=== PATIENT | female | born 1970 | race Caucasian/White ===

== ENCOUNTER 2020-03-05 09:49 | Day surgery (SDC) | payer BC ==
[2020-03-05] MEDS ORDERED: Lactated Ringers 1,000 ML IV SCH (10:00)
[2020-03-05] MEDS ORDERED: Lactated Ringers 1,000 ML IV ONE ×2 (10:18→14:03)
[2020-03-05] MEDS ORDERED: DIPRIVAN 200 MG/20 ML IV ONE ×2 (14:04→14:39)
[2020-03-05] MEDS ORDERED: Xylocaine-Mpf 2% 5 Ml Vial ONE (14:04)
[2020-03-05] MEDS ORDERED: Compazine 10 MG/2 ML ONE (15:05)
[2020-03-05 15:42] VITALS: O2SAT 98
[2020-03-05 16:04] VITALS: BP 120/78; PULSE 72
--- NOTE | 2020-03-06 08:34 | HP ---
HISTORY: This is a patient with reflux, bloating and change in her bowel functions who presents for EGD and colonoscopy. She also had gallbladder disease with a HIDA scan of 13%. PAST MEDICAL/SURGICAL HISTORY: Includes pleurisy, hypertension, D&C, cervical biopsy. MEDICATIONS: Lisinopril, Xyzal, Claritin, Lysine. ALLERGIES: ALLERGIES REVIEWED. SOCIAL HISTORY: No tobacco use. FAMILY HISTORY: Coronary artery disease, gallbladder disease, lung cancer. PHYSICAL EXAMINATION: GENERAL: No acute distress. CVS: Regular rate and rhythm. PULMONARY: Nonlabored respirations. ABDOMEN: Soft, nontender, nondistended. EXTREMITIES: Normal. DIAGNOSIS: Change in bowel function, bloating, gastroesophageal reflux disease. PLAN: EGD and colonoscopy.
--- NOTE | 2020-03-06 08:57 | OP ---
PROCEDURE DATE/TIME: 03/05/2020 1412 PREOPERATIVE DIAGNOSIS: Bloating, reflux, change in bowel function. POSTOPERATIVE DIAGNOSES: 1) Reflux disease. 2) Questionable early Pickard's disease. 3) Mild gastritis. 4) Small hiatal hernia. 5) Colon polyps. 6) Mild hemorrhoidal disease. PROCEDURES: 1) EGD with biopsies. 2) Colonoscopy with hot forceps polypectomy. PROCEDURE PERFORMED BY: Viki John M.D. ANESTHESIA: MAC. ESTIMATED BLOOD LOSS: Minimal. COMPLICATIONS: None. SPECIMENS: 1) Duodenal biopsies; rule out celiac disease. 2) Antral biopsies; rule out Helicobacter pylori disease. 3) Distal esophagus; rule out Pickard's disease. 4) Hepatic flexure polyp. HISTORY: This is a patient who presents for EGD and colonoscopy. Risks, benefits, alternatives discussed with the patient preoperatively. H&P and consent reviewed with her and confirmed and any questions answered. DESCRIPTION OF PROCEDURE: She was then placed in left lateral decubitus position. A complete time out performed. The scope gently introduced into the mouth, oropharynx, into the esophagus, stomach and duodenum. The patient's duodenum was normal. I took multiple biopsies in D3 and D1 to test for celiac disease due to her symptoms. These were done with cold forceps. All sites were hemostatic. The scope was carefully withdrawn back into the stomach. The patient had mild gastritis most specifically in the antrum. Antral biopsy taken to rule out Helicobacter pylori disease with cold forceps. The site was hemostatic. On retroflex view the patient has a very small hiatal hernia. No other significant findings. She had very tiny miniscule couple of gastric polyps which are very minimal. No malignancy. Nothing concerning. The scope was then withdrawn into the distal esophagus. The patient does have some reflux disease here. She has two areas that are 0.5 cm in length with some inflammation consistent with reflux disease. I biopsied these to check for microscopic Pickard's disease. These sites were hemostatic after biopsy. The scope was then further withdrawn from the esophagus. The remainder of the esophagus was normal. Her hiatal hernia is about 1 cm. The patient was then repositioned for colonoscopy. First, a rectal exam was done. She has mild hemorrhoidal disease. The scope was then inserted and gently advanced to the level of the cecum. Gentle abdominal pressure used to help guide the scope to the cecum. The patient had some tortuosity in the sigmoid but I was able to navigate this easily without issue. The cecum was identified by ileocecal valve and appendiceal orifice. Her prep was satisfactory. There was liquid stool throughout the colon that I suctioned and irrigated but overall the view was adequate. We then carefully withdrew the scope taking a circumferential view. There was a small polyp in the hepatic flexure this was taken with hot forceps in entirety and sent to pathology. Site was hemostatic. Scope was further withdrawn. I did not find any other abnormalities. The patient tolerated the procedure well. No immediate complications. PLAN: EGD in approximately one year due to the reflux findings. Colonoscopy in approximately five years due to the findings of one polyp. We will change those intervals should she have any new symptoms or worsening issues. She will be following up with me to discuss pathology as well as to discuss her gallbladder.
== END 2020-03-05 16:05 | disposition home or self-care (01) ==
LOC: SDC 09:49
PROVIDERS: ATTEND Surgery
DX: K21.9 Gastro-esophageal reflux disease without esophagitis (principal); R19.4 Change in bowel habit; D12.3 Benign neoplasm of transverse colon; K64.9 Unspecified hemorrhoids; K29.70 Gastritis, unspecified, without bleeding; K44.9 Diaphragmatic hernia without obstruction or gangrene; I10 Essential (primary) hypertension; R14.0 Abdominal distension (gaseous); Z79.899 Other long term (current) drug therapy
CPT/HCPCS: J2704

== ENCOUNTER 2020-05-28 10:32 | Day surgery (SDC) | payer BC ==
[~2020-05-28 10:32] MED LIST: Lactated Ringers 1,000 ML IV ONE; Lactated Ringers 1,000 ML IV SCH; MEFOXIN 2 GM PREMIX** 2 GM/50 ML ML IV SCH; Sensorcaine 0.25% 10 ML ONE
[2020-05-28] MEDS ORDERED: MEFOXIN 2 GM PREMIX** 2 GM/50 ML ML IV ONE (10:38)
[2020-05-28] MEDS ORDERED: Lactated Ringers 1,000 ML IV ONE (10:38)
[2020-05-28 11:11] LABS: Hematocrit 42.2 % (35-47); Hemoglobin 14.1 gm/dl (12.0-16.0); Mean Cell Volume 87.6 fl (78-100); Mean Corpuscular Hemoglobin 29.3 pg (26-32); Mean Corpuscular Hgb Concent. 33.4 g/dl (32-36); Mean Platelet Volume 11.1 fl (7.5-11.0); Platelet Count 300 K/mm3 (150-450); Red Blood Count 4.82 M/mm3 (4.1-5.4); Red Cell Distribution Width 12.4 % (11.5-14.0)
[2020-05-28 11:19] LABS: BLOOD UREA NITROGEN 13 mg/dL (7-17); CHLORIDE 102 mmol/L (98-107); Calcium 9.5 mg/dL (8.4-10.2); Carbon Dioxide 29 mmol/L (22-30); Creatinine 1 0.71 mg/dL (0.52-1.04); EST GLOMERULAR FILTRATION RATE > 60.0 ML/MIN; Glucose 101 mg/dL (74-106); Potassium 3.8 mmol/L (3.5-5.1); SODIUM 137 mmol/L (137-145)
[2020-05-28] MEDS ORDERED: Decadron 4 MG INJ ONE (12:13)
[2020-05-28] MEDS ORDERED: Zemuron 100 MG/10 ML ONE (12:13)
[2020-05-28] MEDS ORDERED: Zofran 4 MG/2 ML VIAL ONE ×2 (12:13→13:59)
[2020-05-28] MEDS ORDERED: DIPRIVAN 200 MG/20 ML IV ONE (12:13)
[2020-05-28] MEDS ORDERED: BRIDION 200MG/2ML IV ONE (12:13)
[2020-05-28] MEDS ORDERED: Versed 2 MG/2 ML Injection ONE (12:13)
[2020-05-28] MEDS ORDERED: TORAdol 30 mg Injection ONE (12:13)
[2020-05-28] MEDS ORDERED: SUBLIMAZE 100 MCG/2 ML ONE ×2 (12:13→13:59)
[2020-05-28] MEDS ORDERED: Xylocaine-Mpf 2% 5 Ml Vial ONE (12:13)
[2020-05-28] MEDS ORDERED: Hydromorphone 1 mg/ml Injection ONE (13:59)
[2020-05-28 16:01] VITALS: O2SAT 99
[2020-05-28 16:25] VITALS: BP 137/64; PULSE 91
--- NOTE | 2020-05-29 08:00 | OP ---
PROCEDURE DATE/TIME: 05/28/2020 1226 PREOPERATIVE DIAGNOSIS: Chronic cholecystitis with biliary dyskinesia. POSTOPERATIVE DIAGNOSIS: Chronic cholecystitis with biliary dyskinesia. PROCEDURE: Laparoscopic cholecystectomy. PROCEDURE PERFORMED BY: Viki John M.D. COMPLICATIONS: None. ESTIMATED BLOOD LOSS: Less than 10 cc. ANESTHESIA: General. SPECIMEN: Gallbladder. HISTORY: This patient who has had abdominal pain and has been diagnosed with chronic cholecystitis with biliary dyskinesia. Risks, benefits, alternatives regarding laparoscopic cholecystectomy possible open have been discussed with her preoperatively. She was seen in the preoperative area. Her H&P and consent reviewed with her and confirmed. All remaining questions answered. DESCRIPTION OF PROCEDURE: She was then brought back to the operative suite. Anesthesia was induced. She was prepped and draped in the usual sterile fashion. A complete time out performed. Orogastric tube inserted and the stomach desufflated. We then made a left upper quadrant incision. Veress needle was used to access the abdominal cavity without any issues. The abdomen easily insufflated. A 5 mm optical port placed at this site under direct visualization. No injuries identified. An 11 port was then placed under direct visualization at the superior aspect of her umbilicus. Two right upper quadrant 5 ports in the same fashion. The gallbladder was identified. It was retracted. The cystic duct and cystic artery were clearly identified. We continued to clear and isolate the entire liver plate. We had a critical view. There were only two structures entering the gallbladder the cystic duct and cystic artery. These were then clipped, ligated and then gallbladder was taken off the liver bed with Bovie cautery. It was extracted through the umbilical port. I suctioned it. No bile spilled into the abdomen. We then closed the umbilical port with 0 Vicryl laparoscopic suture, irrigated. We re-inspected our surgical site intra-abdominally. Clips in good position. No bleeding. Everything looked excellent. No bile. We then removed the left upper quadrant 5 port, desufflated and then removed the remaining two right upper quadrant ports. Irrigated the wound and then closed with 4-0 Monocryl, Steri-Strips and sterile dressing. The patient tolerated the procedure very well. No immediate complications. She understands her discharge instructions. I have also called her family over the phone and discussed these with them as well. She will be following up as an outpatient.
== END 2020-05-28 16:30 | disposition home or self-care (01) ==
LOC: SDC 10:32
PROVIDERS: ATTEND Surgery
DX: K81.1 Chronic cholecystitis (principal); K82.8 Other specified diseases of gallbladder; I10 Essential (primary) hypertension; Z79.899 Other long term (current) drug therapy
CPT/HCPCS: 36415; 80048; 84703; 85027; J0694; J1100; J1170; J1885; J2250; J2405; J2704; J3010